=== PATIENT | male | born 1950 | race Caucasian/White ===

== ENCOUNTER 2025-04-15 09:02 | Emergency (ER) | payer MEDICARE ==
[2025-04-15] MEDS: Bacitracin Oint 1 GM U/D Packet TOP ONE (09:25)
[2025-04-15] MEDS: Lidocaine 1% with EPINEPHrine 1:100,000 50 ML MDV SUBCUT STA (09:25)
== END 2025-04-15 09:50 | disposition home or self-care (01) ==
LOC: JP.ED 09:02
DX: S61.411A Laceration without foreign body of right hand, initial encounter (principal); E11.9 Type 2 diabetes mellitus without complications; Z79.84 Long term (current) use of oral hypoglycemic drugs; W26.8XXA Contact with other sharp object(s), not elsewhere classified, initial encounter
CPT/HCPCS: 12002; 99282